=== PATIENT | male | born 1945 | race Caucasian/White ===

== ENCOUNTER 2017-05-08 09:33 | Inpatient (IN) | payer MEDICARE ==
[~2017-05-08] VITALS: Ht 165.1 cm; Wt 93.0 kg
[~2017-05-08 09:33] MED LIST: Budesonide0.5 MG/2 M; CITRATE OF MAG296 ML; Cyclobenzaprine5 MG PO; FURO20 PO; Fleet Bisa10 MG/30 M; Glucophage PO; INSDET100 SC; Ipratr-Albuterol3 ML; Keflex500 MG PO; LEVSOD100 PO; Lamisil250 MG PO; METO50 PO; Metformin HCl1000 MG PO; Metoprolol Tart50 MG PO; Norco 5-325 Ta1 EACH PO; Novolog100 UNIT/1; Novolog100 UNIT/2 SC; OXYB5 PO; Omeprazole20 M1; Omeprazole20 M1 PO; PRED10 PO; Synthroid112 MCG PO; TAMS.4ER PO
[2017-05-08 10:07] LABS: PO2 Arterial 141 mmHg (80-100)
[2017-05-08 10:07] LABS: BASOPHILS ABSOLUTE AUTO 0.03 K/mm3 (0.00-0.23); BASOPHILS PERCENT AUTO 0 % (0-2); EOSINOPHILS ABSOLUTE AUTO 0.79 K/mm3 (0.00-0.68); EOSINOPHILS PERCENT AUTO 8 % (0-6); Hematocrit 43.2 % (37.0-53.0); Hemoglobin 12.9 g/dL (13.5-17.5); IMMATURE GRAN ABSOLUTE AUTO 0.02 K/mm3 (0.00-0.10); IMMATURE GRAN PERCENT AUTO 0 % (0-1); LYMPHOCYTES ABSOLUTE AUTO 1.65 K/mm3 (0.84-5.20); LYMPHOCYTES PERCENT AUTO 17 % (21-46); MONOCYTES ABSOLUTE AUTO 0.96 K/mm3 (0.16-1.47); MONOCYTES PERCENT AUTO 10 % (4-13); Mean Corpuscular HGB 29.3 pg (26.0-34.0); Mean Corpuscular HGB Conc 29.9 g/dL (31.5-36.5); Mean Corpuscular Volume 98 fL (80-100); Mean Platelet Volume 10.2 fL (9.1-12.4); NEUTROPHILS ABSOLUTE AUTO 6.48 K/mm3 (1.96-9.15); NEUTROPHILS PERCENT AUTO 65 % (41-73); Platelet Count 224 K/mm3 (150-400); RDW Coefficient Variation 13.8 % (11.7-14.2); RDW Standard Deviation 49.7 fL (35.1-46.3); Red Blood Cell Count 4.41 M/mm3 (4.30-5.90); White Blood Cell Count 9.93 K/mm3 (4.00-11.30)
[2017-05-08 10:08] LABS: PCO2 Arterial 97.8 mmHg (35-45); pH Blood Arterial 7.27 (7.35-7.45)
[2017-05-08 10:29] LABS: Alanine Aminotransfer (ALT/SGP 12 U/L (12-78); Albumin, Blood 3.4 g/dL (3.4-5.0); Albumin/Globulin Ratio 0.9 (0.8-1.8); Alk Phos 70 U/L (50-136); Anion Gap 2 mmol/L (6-16); Aspartate Aminotrans (AST/SGOT 30 U/L (12-37); Bilirubin, Total 0.5 mg/dL (0.1-1.0); Blood Urea Nitrogen 17 mg/dL (8-24); Bun/Creatinine Ratio 30.8 (12.0-20.0); CO2, Blood 42 mmol/L (21-32); Calcium, Blood 8.7 mg/dL (8.5-10.1); Chloride, Blood 101 mmol/L (98-108); Creatinine, Blood 0.55 mg/dL (0.60-1.20); Globulin, Blood 3.7 g/dL (2.2-4.0); Glomerular Filtration Rate >60 (60-); Glucose, Blood 139 mg/dL (70-99); Potassium, Blood 4.1 mmol/L (3.5-5.5); Sodium, Blood 145 mmol/L (136-145); Total Protein, Blood 7.1 g/dL (6.4-8.2); Troponin I <0.015 ng/mL (0.000-0.040)
[2017-05-08 10:56] LABS: Influenza A Negative (NEGATIVE); Influenza B Negative (NEGATIVE)
[2017-05-08] MEDS ORDERED: Novolog Fl100 UNIT/1 SC (14:56)
[2017-05-08 17:55] LABS: CPK Creatine Kinase 972 U/L (39-308); Creatine Kinase MB 5.3 ng/mL (0.0-3.6); Creatine Kinase MB Index 0.5 (0.0-4.0); Troponin I <0.015 ng/mL (0.000-0.040)
[2017-05-08 17:56] LABS: Thyroid Stimulating Hormone 0.865 uIU/mL (0.360-4.800)
[2017-05-08 18:15] LABS: Appearance, Urine Clear (Clear); Bilirubin, Urine Neg (Neg); Blood, Urine 3+ (Neg); Color, Urine Yellow (P-Yellow); Glucose Qualitative, Urine 1+ (Neg); Ketones, Urine 2+ (Neg); Leukocyte Esterase, Urine Neg (Neg); Nitrite, Urine Neg (Neg); Protein, Urine Neg (Neg); Urobilinogen, Urine NORM (Normal)
[2017-05-08 18:44] LABS: White Blood Cells, Urine 0-2 /hpf (0-5)
[2017-05-08 18:45] LABS: Bacteria Rare /hpf; Squamous Epithelial Cells Rare /hpf (Few)
[2017-05-09 02:18] LABS: Hematocrit 43.1 % (37.0-53.0); Hemoglobin 12.9 g/dL (13.5-17.5); Mean Corpuscular HGB 29.5 pg (26.0-34.0); Mean Corpuscular HGB Conc 29.9 g/dL (31.5-36.5); Mean Corpuscular Volume 99 fL (80-100); Mean Platelet Volume 10.2 fL (9.1-12.4); Platelet Count 215 K/mm3 (150-400); RDW Coefficient Variation 13.8 % (11.7-14.2); RDW Standard Deviation 49.4 fL (35.1-46.3); Red Blood Cell Count 4.37 M/mm3 (4.30-5.90); White Blood Cell Count 8.71 K/mm3 (4.00-11.30)
[2017-05-09 02:35] LABS: Anion Gap 1 mmol/L (6-16); Blood Urea Nitrogen 19 mg/dL (8-24); Bun/Creatinine Ratio 30.4 (12.0-20.0); CO2, Blood 43 mmol/L (21-32); Calcium, Blood 8.7 mg/dL (8.5-10.1); Chloride, Blood 95 mmol/L (98-108); Creatinine, Blood 0.62 mg/dL (0.60-1.20); Glomerular Filtration Rate >60 (60-); Glucose, Blood 249 mg/dL (70-99); Potassium, Blood 3.9 mmol/L (3.5-5.5); Sodium, Blood 139 mmol/L (136-145)
[2017-05-09 02:47] LABS: CPK Creatine Kinase 559 U/L (39-308); Creatine Kinase MB 2.7 ng/mL (0.0-3.6); Creatine Kinase MB Index 0.5 (0.0-4.0); Troponin I <0.015 ng/mL (0.000-0.040)
[2017-05-09 09:15] LABS: PCO2 Arterial 70.6 mmHg (35-45); PO2 Arterial 57.9 mmHg (80-100)
[2017-05-10 09:56] LABS: Anion Gap 7 mmol/L (6-16); Blood Urea Nitrogen 29 mg/dL (8-24); CO2, Blood 41 mmol/L (21-32); Calcium, Blood 9.2 mg/dL (8.5-10.1); Chloride, Blood 89 mmol/L (98-108); Creatinine, Blood 0.64 mg/dL (0.60-1.20); Glomerular Filtration Rate >60 (60-); Glucose, Blood 389 mg/dL (70-99); Potassium, Blood 3.6 mmol/L (3.5-5.5); Sodium, Blood 137 mmol/L (136-145)
[2017-05-11 04:21] LABS: Blood Urea Nitrogen 35 mg/dL (8-24); Bun/Creatinine Ratio 50.4 (12.0-20.0); Calcium, Blood 9.1 mg/dL (8.5-10.1); Chloride, Blood 89 mmol/L (98-108); Creatinine, Blood 0.69 mg/dL (0.60-1.20); Glomerular Filtration Rate >60 (60-); Glucose, Blood 153 mg/dL (70-99); Potassium, Blood 3.3 mmol/L (3.5-5.5); Sodium, Blood 137 mmol/L (136-145)
[2017-05-11 04:29] LABS: Anion Gap Unable to Calculate mmol/L (6-16)
[2017-05-11 04:30] LABS: CO2, Blood >45 mmol/L (21-32)
[2017-05-12] MEDS ORDERED: AZIT500 PO (12:01)
[2017-05-12] MEDS ORDERED: LIDO700A20 TOP (12:06)
[2017-05-12] MEDS ORDERED: Ipratr-Albuterol3 ML INH (12:06)
[2017-05-12] MEDS ORDERED: DULERA 200 MCG/13 GM INH (12:09)
== END 2017-05-12 13:07 | disposition home health service (06) | DRG 291 ==
LOC: ER 09:33 → PCU 11:20 → MEDS 05-11 16:49 → ENPENDDIS 05-12 10:00 → MEDS 05-12 13:07
PROVIDERS: Emergency Medicine; Internal Medicine
PROC: 3E0234Z Introduction of Serum, Toxoid and Vaccine into Muscle, Percutaneous Approach (ICD-10-PCS; principal; 2017-05-08)
DX: I11.0 Hypertensive heart disease with heart failure (principal); J96.02 Acute respiratory failure with hypercapnia; J96.01 Acute respiratory failure with hypoxia; J44.1 Chronic obstructive pulmonary disease with (acute) exacerbation; I50.21 Acute systolic (congestive) heart failure; E11.65 Type 2 diabetes mellitus with hyperglycemia; F03.90 Unspecified dementia, unspecified severity, without behavioral disturbance, psychotic disturbance, mood disturbance, and anxiety; Z23 Encounter for immunization; G47.33 Obstructive sleep apnea (adult) (pediatric); E03.9 Hypothyroidism, unspecified; E66.9 Obesity, unspecified; Z68.33 Body mass index [BMI] 33.0-33.9, adult; M47.9 Spondylosis, unspecified
CPT/HCPCS: 36415; 36600; 71046; 72100; 80048; 80053; 81001; 82550; 82553; 82803; 82947; 83036; 83690; 83880; 84145; 84443; 84484; 85025; 85027; 87804; 93005; 93010; 93308; 93321; 94640; 94660; 94664; 94667; 94760; 94761; 94762; 97116; 97162; 97530; 98960; 99285; G8978; G8979; J1650; J1815; J1817; J1940; J2920

== ENCOUNTER 2017-11-29 10:07 | Emergency (ER) | payer MEDICARE ==
[~2017-11-29] VITALS: Ht 165.1 cm; Wt 83.9 kg
[~2017-11-29 10:07] MED LIST changes: +AZIT500 PO; +DULERA 200 MCG/13 GM INH; +Ipratr-Albuterol3 ML INH; +LIDO700A20 TOP; +Novolog Fl100 UNIT/1 SC
[2017-11-29 10:44] LABS: BASOPHILS ABSOLUTE AUTO 0.06 K/mm3 (0.00-0.23); BASOPHILS PERCENT AUTO 1 % (0-2); EOSINOPHILS ABSOLUTE AUTO 0.53 K/mm3 (0.00-0.68); EOSINOPHILS PERCENT AUTO 6 % (0-6); Hematocrit 43.8 % (37.0-53.0); Hemoglobin 13.5 g/dL (13.5-17.5); IMMATURE GRAN ABSOLUTE AUTO 0.03 K/mm3 (0.00-0.10); IMMATURE GRAN PERCENT AUTO 0 % (0-1); LYMPHOCYTES ABSOLUTE AUTO 1.25 K/mm3 (0.84-5.20); LYMPHOCYTES PERCENT AUTO 14 % (21-46); MONOCYTES ABSOLUTE AUTO 0.62 K/mm3 (0.16-1.47); MONOCYTES PERCENT AUTO 7 % (4-13); Mean Corpuscular HGB 29.5 pg (26.0-34.0); Mean Corpuscular HGB Conc 30.8 g/dL (31.5-36.5); Mean Corpuscular Volume 96 fL (80-100); Mean Platelet Volume 10.2 fL (9.1-12.4); NEUTROPHILS ABSOLUTE AUTO 6.24 K/mm3 (1.96-9.15); NEUTROPHILS PERCENT AUTO 72 % (41-73); Platelet Count 253 K/mm3 (150-400); RDW Coefficient Variation 13.6 % (11.7-14.2); RDW Standard Deviation 47.6 fL (35.1-46.3); Red Blood Cell Count 4.58 M/mm3 (4.30-5.90); White Blood Cell Count 8.73 K/mm3 (4.00-11.30)
[2017-11-29 11:20] LABS: Troponin I <0.015 ng/mL (0.000-0.040)
[2017-11-29 11:32] LABS: Alanine Aminotransfer (ALT/SGP 12 U/L (12-78); Albumin, Blood 3.4 g/dL (3.4-5.0); Albumin/Globulin Ratio 0.7 (0.8-1.8); Alk Phos 70 U/L (50-136); Anion Gap 6 mmol/L (6-16); Aspartate Aminotrans (AST/SGOT 11 U/L (12-37); Bilirubin, Total 0.3 mg/dL (0.1-1.0); Blood Urea Nitrogen 14 mg/dL (8-24); Bun/Creatinine Ratio 20.3 (12.0-20.0); CO2, Blood 34 mmol/L (21-32); Calcium, Blood 8.9 mg/dL (8.5-10.1); Chloride, Blood 101 mmol/L (98-108); Creatinine, Blood 0.69 mg/dL (0.60-1.20); Globulin, Blood 4.6 g/dL (2.2-4.0); Glomerular Filtration Rate >60 (60-); Glucose, Blood 143 mg/dL (70-99); Potassium, Blood 4.1 mmol/L (3.5-5.5); Sodium, Blood 141 mmol/L (136-145)
[2017-11-29] MEDS ORDERED: Zithromax250 MG PO (13:22)
[2017-11-29] MEDS ORDERED: Prednisone20 MG PO (13:22)
== END 2017-11-29 13:41 | disposition home or self-care (01) ==
LOC: ER 10:07
PROVIDERS: Emergency Medicine
DX: J44.1 Chronic obstructive pulmonary disease with (acute) exacerbation (principal); E11.9 Type 2 diabetes mellitus without complications; Z79.899 Other long term (current) drug therapy; Z79.4 Long term (current) use of insulin; Z79.52 Long term (current) use of systemic steroids; Z87.891 Personal history of nicotine dependence
CPT/HCPCS: 36415; 71046; 80053; 83880; 84484; 85025; 93005; 93010; 94640; 99285-25

== ENCOUNTER 2018-05-17 08:31 | Inpatient (IN) | payer OTHER ==
[~2018-05-17] VITALS: Ht 165.1 cm; Wt 86.5 kg
[~2018-05-17 08:31] MED LIST changes: -Novolog100 UNIT/1; +Novolog100 UNIT/1 SC; +Prednisone20 MG PO; +Zithromax250 MG PO
[2018-05-17 09:35] LABS: BASOPHILS ABSOLUTE AUTO 0.06 K/mm3 (0.00-0.23); BASOPHILS PERCENT AUTO 0 % (0-2); EOSINOPHILS ABSOLUTE AUTO 0.03 K/mm3 (0.00-0.68); EOSINOPHILS PERCENT AUTO 0 % (0-6); Hemoglobin 13.4 g/dL (13.5-17.5); IMMATURE GRAN PERCENT AUTO 1 % (0-1); LYMPHOCYTES PERCENT AUTO 9 % (21-46); MONOCYTES PERCENT AUTO 5 % (4-13); Mean Corpuscular HGB 29.5 pg (26.0-34.0); Mean Corpuscular HGB Conc 31.2 g/dL (31.5-36.5); Mean Corpuscular Volume 95 fL (80-100); Mean Platelet Volume 11.1 fL (9.1-12.4); NEUTROPHILS ABSOLUTE AUTO 15.88 K/mm3 (1.96-9.15); NEUTROPHILS PERCENT AUTO 85 % (41-73); Platelet Count 189 K/mm3 (150-400); RDW Coefficient Variation 14.4 % (11.7-14.2); RDW Standard Deviation 49.8 fL (35.1-46.3); Red Blood Cell Count 4.54 M/mm3 (4.30-5.90); White Blood Cell Count 18.77 K/mm3 (4.00-11.30)
[2018-05-17 09:52] LABS: Alanine Aminotransfer (ALT/SGP 13 U/L (12-78); Albumin, Blood 3.3 g/dL (3.4-5.0); Albumin/Globulin Ratio 0.8 (0.8-1.8); Alk Phos 59 U/L (50-136); Anion Gap 7 mmol/L (6-16); Aspartate Aminotrans (AST/SGOT 6 U/L (12-37); Blood Urea Nitrogen 17 mg/dL (8-24); Bun/Creatinine Ratio 16.7 (12.0-20.0); CO2, Blood 31 mmol/L (21-32); Calcium, Blood 8.7 mg/dL (8.5-10.1); Chloride, Blood 101 mmol/L (98-108); Creatinine, Blood 1.02 mg/dL (0.60-1.20); Globulin, Blood 4.1 g/dL (2.2-4.0); Glomerular Filtration Rate >60 (60-); Glucose, Blood 142 mg/dL (70-99); Potassium, Blood 3.7 mmol/L (3.5-5.5); Sodium, Blood 139 mmol/L (136-145); Total Protein, Blood 7.4 g/dL (6.4-8.2); Troponin I <0.015 ng/mL (0.000-0.040)
[2018-05-17 10:06] LABS: Base Excess Venous 6.8 mmol/L; Bicarbonate Venous 28.5 mmol/L (24.0-30.0); PCO2 Venous 56.2 mmHg (38-42); pH Blood Venous 7.37 (7.34-7.37)
[2018-05-17 11:17] LABS: Influenza A Negative (NEGATIVE); Influenza B Negative (NEGATIVE)
[2018-05-17] MEDS ORDERED: METF500C PO ×2 (15:43)
--- NOTE | 2018-05-17 19:45 | NUR ---
ASSUMPTION OF CARE Assumed care of pt upon arrival to unit at 1406. Pt arrived accompanied by ED RN. Telephone report received prior to pt arrival. Pt arrived wearing 5 LPM NC and has been wearing 5 LPM since. O2 sats 88%-90%. Admission assessment completed. Pt's ex- and "very close family friend" helped with pt's admission history. Pt verbalizes states he wants us to "do everything" if his heart stops beating or he stops breathing. Pt has notable dyspnea with exertion. Continuous oximetry in place. Pt OOB for dinner, tab alarm applied. Pt uses CPAP at home. Call placed to Dr Nicolas requesting order for CPAP and to notify that lactic acid has increased. New orders entered by provider. No acute changes since admission assessment. Pt calls appropriately. Pt verbalizes concern that he will get "oxygen poisoning", referencing a previous hospitalization where he states his "carbon dioxide levels got too high" and caused him to become forgetful. Pt also states that he earned a diagnosis of dementia during that previous hospitalization. He and his family deny dementia and states his sypmtoms were due to "too much carbon dioxide". This RN discussed pt's current O2 saturations and why he is on 5 LPM NC instead of his baseline use of 3 LPM NC. Pt verbalizes understanding. Report given to oncoming RNRita.
[2018-05-18 05:35] LABS: BASOPHILS ABSOLUTE AUTO 0.06 K/mm3 (0.00-0.23); BASOPHILS PERCENT AUTO 0 % (0-2); EOSINOPHILS ABSOLUTE AUTO 0.09 K/mm3 (0.00-0.68); EOSINOPHILS PERCENT AUTO 1 % (0-6); Hematocrit 38.9 % (37.0-53.0); IMMATURE GRAN ABSOLUTE AUTO 0.12 K/mm3 (0.00-0.10); IMMATURE GRAN PERCENT AUTO 1 % (0-1); LYMPHOCYTES ABSOLUTE AUTO 1.88 K/mm3 (0.84-5.20); LYMPHOCYTES PERCENT AUTO 11 % (21-46); MONOCYTES ABSOLUTE AUTO 0.99 K/mm3 (0.16-1.47); MONOCYTES PERCENT AUTO 6 % (4-13); Mean Corpuscular HGB 29.6 pg (26.0-34.0); Mean Corpuscular HGB Conc 30.8 g/dL (31.5-36.5); Mean Corpuscular Volume 96 fL (80-100); Mean Platelet Volume 10.9 fL (9.1-12.4); NEUTROPHILS ABSOLUTE AUTO 14.29 K/mm3 (1.96-9.15); NEUTROPHILS PERCENT AUTO 82 % (41-73); Platelet Count 187 K/mm3 (150-400); RDW Coefficient Variation 14.4 % (11.7-14.2); RDW Standard Deviation 50.1 fL (35.1-46.3); Red Blood Cell Count 4.05 M/mm3 (4.30-5.90); White Blood Cell Count 17.43 K/mm3 (4.00-11.30)
[2018-05-18 05:48] LABS: Anion Gap 6 mmol/L (6-16); Blood Urea Nitrogen 12 mg/dL (8-24); Bun/Creatinine Ratio 13.4 (12.0-20.0); CO2, Blood 30 mmol/L (21-32); Calcium, Blood 8.3 mg/dL (8.5-10.1); Chloride, Blood 101 mmol/L (98-108); Glomerular Filtration Rate >60 (60-); Glucose, Blood 143 mg/dL (70-99); Potassium, Blood 3.8 mmol/L (3.5-5.5); Sodium, Blood 137 mmol/L (136-145)
--- NOTE | 2018-05-18 07:30 | NUR ---
SHIFT SUMMARY- PT HAS REMAINED AOX4 THROUGHOUT SHIFT. VSS. PLEASANT AND COOPERATIVE WITH CARE. O2 SATS HAVE REMAINED AT TARGET RANGE OF 88-92% ON 7L VIA HIGH FLOW NASAL CANNULA WHILE AT REST. PT WILL DESATURATE WITH EXERTION TO 85% BUT RECOVERS WITHIN TWO MINUTES OF REST AND PURSED LIP BREATHING TECHNIQUES. PT WITH ONE EPISODE OF DESATURATION WHILE ON CPAP WITH DIFFICULTY INCREASING SATURATIONS, EVEN WITH INCREASING O2 BLEED IN TO 7L- RT FOUND THAT PATIENT USES BIPAP AT HOME WITH 6-7L O2 BLEED IN AT BASELINE, MACHINE TO BE CHANGED TO BIPAP. PT DENIES CHEST PAIN OR FEELING DYSPNEIC THROUGHOUT SHIFT. PT HAD ONE 5-BEAT RUN OF V-TACH THIS AM THAT WAS ASYMPTOMATIC. NO OTHER CHANGES NOTED FROM INITIAL ASSESSMENT, WILL CONTINUE TO MONITOR AND REPORT TO ONCOMING RN. BED IN LOW POSITION, CALL LIGHT IN REACH.
--- NOTE | 2018-05-18 18:18 | NUR ---
SHIFT SUMMARY PT RESTING IN BED AND RECLINER THROUGHOUT THE DAY. VSS. ALERT AND ORIENTED X3. DENIES PAIN THROUGHOUT THE DAY. LUNG SOUNDS DIMINISHED THROUGHOUT. SLIGHT COARSE SOUNDS NOTED, CLEARED WITH COUGH. PT FREQUENTLY INCONTINENT OF URINE, ATTENDS CHANGED. PT STANDING FOR ATTENDS CHANGE AND TOLERATING WELL. PT ON HIGH FLOW OXYGEN AT 7L, WEARING BIPAP OFF AND ON TODAY. WILL CONTINUE TO MONITOR.
[2018-05-19 04:14] LABS: BASOPHILS ABSOLUTE AUTO 0.01 K/mm3 (0.00-0.23); BASOPHILS PERCENT AUTO 0 % (0-2); EOSINOPHILS PERCENT AUTO 0 % (0-6); Hematocrit 38.5 % (37.0-53.0); Hemoglobin 11.8 g/dL (13.5-17.5); IMMATURE GRAN ABSOLUTE AUTO 0.11 K/mm3 (0.00-0.10); IMMATURE GRAN PERCENT AUTO 1 % (0-1); LYMPHOCYTES ABSOLUTE AUTO 0.63 K/mm3 (0.84-5.20); LYMPHOCYTES PERCENT AUTO 6 % (21-46); MONOCYTES ABSOLUTE AUTO 0.33 K/mm3 (0.16-1.47); MONOCYTES PERCENT AUTO 3 % (4-13); Mean Corpuscular HGB 29.1 pg (26.0-34.0); Mean Corpuscular HGB Conc 30.6 g/dL (31.5-36.5); Mean Corpuscular Volume 95 fL (80-100); Mean Platelet Volume 11.3 fL (9.1-12.4); NEUTROPHILS ABSOLUTE AUTO 9.99 K/mm3 (1.96-9.15); NEUTROPHILS PERCENT AUTO 90 % (41-73); Platelet Count 204 K/mm3 (150-400); RDW Coefficient Variation 14.2 % (11.7-14.2); RDW Standard Deviation 49.7 fL (35.1-46.3); Red Blood Cell Count 4.05 M/mm3 (4.30-5.90); White Blood Cell Count 11.07 K/mm3 (4.00-11.30)
[2018-05-19 04:37] LABS: Albumin, Blood 2.7 g/dL (3.4-5.0); Anion Gap 12 mmol/L (6-16); Blood Urea Nitrogen 25 mg/dL (8-24); CO2, Blood 26 mmol/L (21-32); Calcium, Blood 8.8 mg/dL (8.5-10.1); Chloride, Blood 99 mmol/L (98-108); Creatinine, Blood 1.25 mg/dL (0.60-1.20); Glomerular Filtration Rate >60 (60-); Glucose, Blood 328 mg/dL (70-99); Phosphorus, Blood 2.8 mg/dL (2.5-4.9); Potassium, Blood 3.6 mmol/L (3.5-5.5); Sodium, Blood 137 mmol/L (136-145)
--- NOTE | 2018-05-19 05:25 | NUR ---
SHIFT SUMMARY PATIENT ALERT AND ORIENTED X 3 THROUGHOUT SHIFT. HE SLEPT WELL DURING THE NIGHT, WOKE EASILY FOR VITALS AND REMAINED PLEASANT AND COOPERATIVE WITH VITALS AND ASSESSMENTS. PT DENIED ANY COMPLAINTS OF PAIN OR DISCOMFORT. HE DENIED ANY UNMET NEEDS, BUT WAS ABLE TO MAKE NEEDS KNOWN. HE COMMUNICATE EFFECITVELY WITH STAFF AND DEMONSTRATED APPRORPRIATE USE OF HIS CALL LIGHT. THIS WAS LEFT WITHIN EASY REACH, BED WAS LEFT IN THE LOWEST POSITION AND 2X SIDE RAILS WERE IN PLACE. PT WAS AN EASY ONE PERSON TRANSFER TO BS JUST NEEDED SOME EXTRA ASSISTANCE WITH LINES AND TUBES. NO ACUTE CHANGES WERE OBSERVED TO MENTATION OR LOC. HE WILL CONTINUE TO BE MONITORED UNTIL HANDOFF TO DAYSHIFT RN.
--- NOTE | 2018-05-19 08:00 | NUR ---
PT SITTING UP IN CHAIR WATCHING TV, A/OX3, COOPERATIVE WITH CARE, FOLLOWS COMMANDS WELL, DENIES PAIN, STATES HE IS DOING OK. ASKED NURSE HOW MUCH 02 HE IS ON, AND WHEN TOLD IS AT 5 LITERS ASKED TO HAVE IT TURNED DOWN TO 4 LITERS, SATS ARE 90-91% DENIES SOB, REPORTS PRODUCTIVE COUGH OF BLOODY PHLEM, INSTRUCTED HIM WE NEED TO SEND A SAMPLE TO LAB, GAVE HIM A SPECI CUP, LUNGS ARE VERY DIM T/O, RESP EVEN AND UNLABORED AT REST, HRR, TELE IN PLACE RUNNING SR PER MONITOR, SEE STRIP, +1 EDEMA NOTED TO B/L LE, PPP+1, CAP REFILL <3 SEC, VS STABLE, AFEBRILE, IV SITE TO RAC SITE IS CLEAR AND PATENT, BT X5, ABD ROUND SOFT NONTENDER, INCONT OF URINE AT TIME, HAS PULL UPS ON, BUT USES THE URINAL AT TIMES, SKIN C/W/D, ROSY LOPEZ, CALL LIGHT IN REACH.
--- NOTE | 2018-05-19 18:19 | NUR ---
PT HAS BEEN UP TO THE CHAIR ALL DAY, DOING WELL, NO COMPLAINTS, IS MAINTAINING ON 4 LITERS 02 VIA N/C, NO ACUTE CHANGES THIS SHIFT. CALL LIGHT IN REACH.
[2018-05-19 20:30] LABS: Vancomycin, Trough 17.3 ug/mL (5.0-10.0)
[2018-05-20 04:03] LABS: BASOPHILS ABSOLUTE AUTO 0.01 K/mm3 (0.00-0.23); BASOPHILS PERCENT AUTO 0 % (0-2); EOSINOPHILS PERCENT AUTO 0 % (0-6); Hematocrit 34.3 % (37.0-53.0); Hemoglobin 10.8 g/dL (13.5-17.5); IMMATURE GRAN ABSOLUTE AUTO 0.29 K/mm3 (0.00-0.10); IMMATURE GRAN PERCENT AUTO 2 % (0-1); LYMPHOCYTES ABSOLUTE AUTO 0.81 K/mm3 (0.84-5.20); LYMPHOCYTES PERCENT AUTO 6 % (21-46); MONOCYTES ABSOLUTE AUTO 0.66 K/mm3 (0.16-1.47); MONOCYTES PERCENT AUTO 5 % (4-13); Mean Corpuscular HGB 29.8 pg (26.0-34.0); Mean Corpuscular HGB Conc 31.5 g/dL (31.5-36.5); Mean Corpuscular Volume 95 fL (80-100); Mean Platelet Volume 11.2 fL (9.1-12.4); NEUTROPHILS ABSOLUTE AUTO 12.04 K/mm3 (1.96-9.15); NEUTROPHILS PERCENT AUTO 87 % (41-73); Platelet Count 223 K/mm3 (150-400); RDW Coefficient Variation 14.3 % (11.7-14.2); RDW Standard Deviation 49.8 fL (35.1-46.3); Red Blood Cell Count 3.62 M/mm3 (4.30-5.90); White Blood Cell Count 13.81 K/mm3 (4.00-11.30)
[2018-05-20 04:26] LABS: Albumin, Blood 2.5 g/dL (3.4-5.0); Anion Gap 9 mmol/L (6-16); Blood Urea Nitrogen 41 mg/dL (8-24); Bun/Creatinine Ratio 33.9 (12.0-20.0); CO2, Blood 30 mmol/L (21-32); Calcium, Blood 8.5 mg/dL (8.5-10.1); Chloride, Blood 104 mmol/L (98-108); Creatinine, Blood 1.21 mg/dL (0.60-1.20); Glomerular Filtration Rate >60 (60-); Glucose, Blood 160 mg/dL (70-99); Phosphorus, Blood 2.7 mg/dL (2.5-4.9); Potassium, Blood 3.7 mmol/L (3.5-5.5); Sodium, Blood 143 mmol/L (136-145)
[2018-05-20 05:18] LABS: PO2 Arterial 68.9 mmHg (80-100); pH Blood Arterial 7.38 (7.35-7.45)
--- NOTE | 2018-05-20 05:57 | NUR ---
SHIFT SUMMARY PT ALERT AND ORIENTED X 3 THROUGHOUT SHIFT. HE SLEPT SOUNDLY T/O SHIFT AND REMAINED PLEASANT AND COOPERATIVE. PT DENIED ANY UNMET NEEDS AND WAS ABLE TO MAKE NEEDS KNOWN. PT VITALS WERE STABLE DURING THE NIGHT AND HE HAD NO COMPLAINTS OF PAIN OR DISCOMFORT. PT HAD NO ACUTE CHANGES TO VITALS OR LOC AND HE TOLERATED HIS BIPAP ALL NIGHT. PT HAS BED IN LOWEST POSITION, CALL LIGHT IN REACH AND NON SLIP SOCKS ON FOR SAFETY DURING AMBULATION. PT WILL CONTINUE TO BE MONITORED UNTIL HANDOFF TO DAYSHIFT RN.
--- NOTE | 2018-05-20 08:05 | NUR ---
pt up to chair this am. a/ox3, pleasant and cooperative with care, follows commands well. denies pain, states he didn't sleep much last night, states he is feeling ok this am. lungs are very dim t/o, resp even and unlabored at rest, is mildly labored with activity. has a wet harsh productive cough, sats are 89-90% on 3.5 liters, hrr tele in place running sr per monitor, see strip, no edema noted, ppp+1, cap refill <3sec, vs stable, afebrile, iv sites are clear and patent, btx4, abd round soft nontender, voids via urinal and some incont, attends in place, hero robins, call light in reach.
--- NOTE | 2018-05-20 12:52 | NUR ---
PT UP IN CHAIR DOING WELL, IS SLEEPY BUT WAKES EASILY. STATES HE IS COMFORTABLE. CALL LIGHT IN REACH.
--- NOTE | 2018-05-20 18:19 | NUR ---
PT SITTING UP IN CHAIR ALL DAY. ANTICIPATING HE WILL GO HOME TOMORROW. NO ACUTE CHANGES THIS SHIFT. IS BACK TO 3 LITERS 02, NO NEEDS OR COMPLAINTS. CALL LIGHT IN REACH.
--- NOTE | 2018-05-20 23:15 | NUR ---
PM NOTE. ASSUMED CARE OF PT APROX 1900. PT IS A&Ox4 PLEASENT AND COOPERATIVE WITH CARE, PT WAS ADMITTED DUE TO RESP FAILURE, PER REPORT PT HAS IMPROVED GREATLY TODAY. PT IS CURRENTLY ON HIS HOME DOSE OF 02 AT 3L NC AND USES CPAP DURING SLEEP. PT IS VERY ANXIOUS TO D/C HOME HOPEFULLY TOMORROW. TELE INTACT, ST W/PVCS AND PACS IN THE LOW-MID 100'S. PT'S BP 144/70. NO EDEMA NOTED DURING ASSESSMENT. L/S DIM T/O, RR 18 EVEN AND UNLABORED. PT IS ABLE TO SPEAK IN COMPLETE SENTENCES. 02 STATS ARE >90% ON 3L NC. BT PRESENT AND HYPERACTIVE, ABD IS SOFT AND NONTENDER TO PALP. CALL LIGHT IN REACH, BED IS LOCKED AND LOW, WILL CONTINUE TO MONITOR.
[2018-05-21 06:18] LABS: BASOPHILS ABSOLUTE AUTO 0.01 K/mm3 (0.00-0.23); BASOPHILS PERCENT AUTO 0 % (0-2); EOSINOPHILS PERCENT AUTO 0 % (0-6); Hematocrit 36.4 % (37.0-53.0); Hemoglobin 11.2 g/dL (13.5-17.5); IMMATURE GRAN ABSOLUTE AUTO 0.05 K/mm3 (0.00-0.10); IMMATURE GRAN PERCENT AUTO 1 % (0-1); LYMPHOCYTES ABSOLUTE AUTO 1.09 K/mm3 (0.84-5.20); LYMPHOCYTES PERCENT AUTO 12 % (21-46); MONOCYTES ABSOLUTE AUTO 0.75 K/mm3 (0.16-1.47); MONOCYTES PERCENT AUTO 8 % (4-13); Mean Corpuscular HGB 29.5 pg (26.0-34.0); Mean Corpuscular HGB Conc 30.8 g/dL (31.5-36.5); Mean Corpuscular Volume 96 fL (80-100); Mean Platelet Volume 10.9 fL (9.1-12.4); NEUTROPHILS ABSOLUTE AUTO 7.17 K/mm3 (1.96-9.15); NEUTROPHILS PERCENT AUTO 79 % (41-73); NRBC ABSOLUTE 0.02 K/mm3 (0.00-0.02); NRBC Auto 0.2 /100 WBC (0.0-0.2); Platelet Count 220 K/mm3 (150-400); RDW Coefficient Variation 14.6 % (11.7-14.2); White Blood Cell Count 9.07 K/mm3 (4.00-11.30)
[2018-05-21 06:37] LABS: Albumin, Blood 2.6 g/dL (3.4-5.0); Anion Gap 7 mmol/L (6-16); Blood Urea Nitrogen 35 mg/dL (8-24); CO2, Blood 31 mmol/L (21-32); Calcium, Blood 8.7 mg/dL (8.5-10.1); Chloride, Blood 106 mmol/L (98-108); Creatinine, Blood 1.03 mg/dL (0.60-1.20); Glomerular Filtration Rate >60 (60-); Glucose, Blood 114 mg/dL (70-99); Phosphorus, Blood 2.6 mg/dL (2.5-4.9); Potassium, Blood 4.1 mmol/L (3.5-5.5); Sodium, Blood 144 mmol/L (136-145)
--- NOTE | 2018-05-21 06:58 | NUR ---
SHIFT SUMMARY. NO ACUTE CHANGES NOTED THIS SHIFT. PT SLEPT WELL T/O SHIFT. PT USED CPAP W/5L BLEED IN FOR SLEEP. PT'S VS HAVE BEEN STABLE T/O SHIFT. PT DENIES ANY CHEST PAIN/PRESSURE, N/V OR INCREASED SBO. PT IS ON HOME DOSE OF 02 AT 3L NC. CALL LIGHT IN REACH, BED IS LOCKED AND LOW WILL CONTINUE TO MONITOR UNTIL REPORT IS GIVEN TO ONCOMING RN.
--- NOTE | 2018-05-21 10:15 | NUR ---
ASSUMED CARE AND COMFORT OF THIS PATIENT AT 0700. PT WAS UP SITTING IN RECLINER CHAIR. PLEASANT AFFECT. CALL LIGHT IN REACH. LUNGS ARE DIM IN THE BASES WITH PRODUCTIVE COUGH NOTED. PT AO X 4. WILL CONTINUE TO MONITOR THIS PATIENT UNTIL REPORT AND HAND OFF TO NOC SHIFT RN.
--- NOTE | 2018-05-21 12:53 | NUR ---
COMES TO SEE PATIENT. OK FOR DC FROM PULMONARY. PER HE IS TO HVE TRELOGY INHALER ONE PUFF PER DAY AND TAPER DOWN PREDNOSONE TO 5MG PER DAY. SEE IN ONE WEEK FROM DC. NO OTHER INHALERS BESIDE TRELOGY ONLY NEBS. WILL CALL AND LET HER KNOW.
--- NOTE | 2018-05-21 18:51 | NUR ---
END OF SHIFT; PT REMAINS SITTING IN HIS RECLINER CHAIR DURING DAY. HE IS AO X 4 TODAY. PT HAS PLEASANT AFFECT AND IS COOPERATIVE WITH CARE. HE DENIES ANY PAIN OR DISCOMFORT. AT THIS TIME HE IS ON 4 LITERS NASAL CANNULA. VITAL SIGNS ARE STABLE CHARTED. LUNGS ARE COARSE AND DIM IN THE BASES. PT WILL BE DISCHARGED IN THE AM IF NO CHANGES IN CONDITION.
--- NOTE | 2018-05-21 19:10 | NUR ---
PM NOTE. ASSUMED CARE OF PT APROX 1900. PT IS A&O, PLEASENT AND COOPERATIVE WITH CARE, PT WAS ADMITTED DUE TO RESP FAILURE, DURING DAY SHIFT THE PT'S O2 REQUIREMENTS INCREASED FROM 3L NC TO 4L NC AND PROVIDER WANTED THE PT TO STAY ONE MORE NIGHT. TELE INTACT, SR W/PAC/PVCS 80'S-100'S PER MANAGER HOTEL, PT'S BP 130/87, NO EDEMA NOTED ON ASSESSMENT. L/S DIM T/O PT ON 4 L NC W/STATS >90%. PT'S RESPERATIONS ARE EVEN AND UNLABORED. BT PRESENT AND HYPERACTIVE, ABD IS SOFT AND NONTENDER TO PALP. CALL LIGHT IN REACH, BED IS LOCKED AND LOW WILL CONTINUE TO MONITOR.
--- NOTE | 2018-05-22 18:59 | NUR ---
SHIFT SUMMARY. 1651 PT TRANSFERED FROM PCU TO MEDICAL FLOOR VIA W/C. RECIEVED REPORT FROM MEAL MILLER PRIOR TO TRANSFER. A&OX4, 1 ASSIST WITH FWW FOR TRANSFERS. PT IS AWARE OF LIMITATIONS AND CALLS APPROPRIATELY. PT DENIES PAIN, N/V. PT REPORTS MILD DYSPNEA WITH EXERTION, ON 2.5L O2 NC WHICH IS PT'S BASELINE AT HOME. NO NEW CHANGES.
--- NOTE | 2018-05-23 04:31 | NUR ---
PT SLEPT THROUGH THE NIGHT. CPAP IN PLACE. NO C/O PAIN SOB. CALL LIGHT IN REACH, WILL USE APPROPIATELY. URINAL AT BEDSIDE. PT 1 PRSN STANDBY ASSIST.
[2018-05-23] MEDS ORDERED: HYDR1TAB94 PO (12:00)
[2018-05-23] MEDS ORDERED: GUAIFENESIN ER600 MG PO (12:06)
[2018-05-23] MEDS ORDERED: ALBU2.5V5 INH (12:06)
[2018-05-23] MEDS ORDERED: OMEPRAZOLE MAGN20 MG PO (12:07)
[2018-05-23] MEDS ORDERED: TIOT18 INH (12:11)
[2018-05-23] MEDS ORDERED: PRED20 PO (12:11)
[2018-05-23] MEDS ORDERED: LEVO750 PO (12:12)
--- NOTE | 2018-05-23 12:38 | NUR ---
DISCHARGE PT STATE FEELING IMPROVED, DR DIETRICH IN TO SEE HIM, STATE HE MAY GO HOME TODAY, PT STATE HE FEELS LIKE HE IS READY, DR SANCHEZ D/C ORDERS. FAMILY MEMBERS GO HOME TO GET PORTABLE O2, WILL RETURN LATER. IV SITES X2 D/C INTACT. PT ABLE TO DRESS/GATHER BELONGINGS INDEPENDANTLY. D/C INSTRUCT PROVIDED. PT IS PLEASANT/APPRECIATIVE. O2 @ 2.5L HOME DOSE.
== END 2018-05-23 13:41 | disposition home or self-care (01) | DRG 871 ==
LOC: ER 08:31 → PCU 11:23 → MEDS 05-22 16:52 → ENPENDDIS 05-23 11:51 → MEDS 05-23 13:41
PROVIDERS: Emergency Medicine; Family Medicine; Internal Medicine Critical Care Medicine; ADMIT Internal Medicine
DX: A41.9 Sepsis, unspecified organism (principal); J18.9 Pneumonia, unspecified organism; J96.22 Acute and chronic respiratory failure with hypercapnia; J96.21 Acute and chronic respiratory failure with hypoxia; J44.1 Chronic obstructive pulmonary disease with (acute) exacerbation; R04.2 Hemoptysis; I47.2 Ventricular tachycardia; J44.0 Chronic obstructive pulmonary disease with (acute) lower respiratory infection; R65.20 Severe sepsis without septic shock; E11.9 Type 2 diabetes mellitus without complications; I10 Essential (primary) hypertension; E03.9 Hypothyroidism, unspecified; E66.9 Obesity, unspecified; I25.10 Atherosclerotic heart disease of native coronary artery without angina pectoris; K21.9 Gastro-esophageal reflux disease without esophagitis; G47.33 Obstructive sleep apnea (adult) (pediatric); Z99.81 Dependence on supplemental oxygen; Z86.73 Personal history of transient ischemic attack (TIA), and cerebral infarction without residual deficits; I25.2 Old myocardial infarction; Z79.84 Long term (current) use of oral hypoglycemic drugs; Z79.4 Long term (current) use of insulin; Z79.899 Other long term (current) drug therapy; Z87.891 Personal history of nicotine dependence; Z95.5 Presence of coronary angioplasty implant and graft; Z68.33 Body mass index [BMI] 33.0-33.9, adult; Z85.46 Personal history of malignant neoplasm of prostate
CPT/HCPCS: 36415; 36600; 71046; 80048; 80053; 80069; 80202; 82803; 82947; 83605; 83880; 84484; 85025; 87040; 87070; 87205; 87804; 93005; 93010; 94640; 94644; 94660; 94667; 94762; 96361; 96365; 96375; 99285-25; J0696; J1650; J1815; J1940; J1956; J2405; J2543; J2930; J3370; J7030; J7050